=== PATIENT | female | born 1980 | race African-American/Black ===

== ENCOUNTER 2017-06-01 07:16 | Inpatient (IN) | payer OTHER ==
[2017-06-01] MEDS ORDERED: Misoprostol 25 MCG (1/4 of 100 MCG) Tab ONE (08:16)
[2017-06-01] MEDS ORDERED: Nalbuphine 20 MG/1 ML Amp IVPUSH PRN (08:28)
[2017-06-01] MEDS ORDERED: Ondansetron 4 MG/2 ML SDV IVPUSH PRN ×2 (08:28→17:10)
[2017-06-01] MEDS ORDERED: Sodium Chloride 0.9% 10 ML Syringe FLUSH PRN (08:28)
--- NOTE | 2017-06-01 08:29 | PCM.LDHP ---
<Daja Bartlett - Last Filed: 06/01/17 08:24> L&D History of Present Illness - General Date of Service: 06/01/17 Admit Problem/Dx: Admission Diagnosis/Problem Admission Diagnosis/Problem Source of Information: Patient History Limitations: Reports: No Limitations - History of Present Illness Introduction:: Patient is a 36 yo female that presents to labor and delivery for induction. She is a . She is in no acute distress. She is currently 40 1/7 weeks gestation. Cervix is 1-2 cm, 50% effaced, soft, posterior, vertex -1. The patient reports she had normal care up to today and reports having no complications with her prior pregnancies. The rest of her exam is unremarkable. Plan is to place cytotec 25 mcg at the cervix q3h now for a total of 3 doses. Oxytocin if indicated. Plan to rupture her membranes to induce labor. Continue monitoring GBS negative Pain Score: 0 Associated Symptoms: Reports: N - Related Data Allergies/Adverse Reactions: Allergies Allergy/AdvReac Type Severity Reaction Status Date / Time Penicillins Allergy Other Verified 11/27/14 09:21 Home Medications: Home Meds . 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 Para: 2 (2001) LMP (Approximate): - Past Surgical History HEENT Surgical History: Reports: Oral Surgery Other Cardiovascular Surgeries/Procedures: heart palpitation with Other Female Surgeries/Procedures: colposcopy Social & Family History - Family History Family Medical History: Noncontributory - Tobacco Use Smoking Status *Q: Never Smoker - Caffeine Use Caffeine Use: Reports: None - Alcohol Use Days Per Week of Alcohol Use: 0 - Recreational Drug Use Recreational Drug Use: No H&P Review of Systems - Review of Systems: Review Of Systems: See Below General: Reports: No Symptoms HEENT: Reports: No Symptoms Pulmonary: Reports: No Symptoms Cardiovascular: Reports: No Symptoms Gastrointestinal: Reports: No Symptoms Genitourinary: Reports: No Symptoms Musculoskeletal: Reports: No Symptoms Skin: Reports: No Symptoms Psychiatric: Reports: No Symptoms Neurological: Reports: No Symptoms Hematologic/Lymphatic: Reports: No Symptoms Immunologic: Reports: No Symptoms L&D Exam - Exam Exam: See Below - OB Specific Fundal Height In cm: 40 - Servin Score Servin Score Cervix Position: Posterior Servin Score Consistency: Soft Servin Score Effacement: 31-50% Servin Score Dilation: 1-2 cm Servin Score Infant's Station: -1 ,0 Servin Score Total: 6 - Exam General: Alert, Oriented HEENT: Mucosa Moist & [place] Neck: Supple, Trachea Midline Lungs: Clear to Auscultation, Normal Respiratory Effort Cardiovascular: Regular Rate, Regular Rhythm Rectal Exam: Deferred Genitourinary: Normal external exam, Normal bimanual exam Extremities: Normal Inspection, Non-Tender, No Pedal Edema Skin: Warm, Intact Psychiatric: Alert, Normal Affect, Normal Mood - Problem List (1) 40 weeks gestation of SNOMED Code(s): 24456845 ICD Code: Z3A.40 - 40 WEEKS GESTATION OF Status: Acute Current Visit: Yes Problem List Initiated/Reviewed/Updated: No Assessment/Plan Comment:: Patient is a 36 yo female that presents to labor and delivery for induction. She is a . She is in no acute distress. She is currently 40 1/7 weeks gestation. Cervix is 1-2 cm, 50% effaced, soft, posterior, vertex -1. The patient reports she had normal care up to today and reports having no complications with her prior pregnancies. The rest of her exam is unremarkable. Plan is to place cytotec 25 mcg at the cervix q3h now for a total of 3 doses. Oxytocin if indicated. Plan to rupture her membranes to induce labor. Continue monitoring GBS negative <Chris Blair - Last Filed: 06/01/17 08:49> L&D History of Present Illness - General Admit Problem/Dx: Patient Status Order with Admit Dx/Problem 06/01/17 08:28 Patient Status [ADT] Routine Admission Diagnosis/Problem Admission Diagnosis/Problem L&D Exam - Vital Signs Vital Signs: Last Vital Signs Temp 97.8 F 06/01/17 08:28 Pulse 80 06/01/17 08:28 Resp 18 06/01/17 08:28 BP 115/73 06/01/17 08:28 Pulse Ox 97 06/01/17 08:28 - Problem List (1) 40 weeks gestation of SNOMED Code(s): 46486206 ICD Code: Z3A.40 - 40 WEEKS GESTATION OF Status: Acute Current Visit: Yes Problem List Initiated/Reviewed/Updated: No Orders Last 24hrs: Active Orders 24 hr Category Date Time Status Patient Status [ADT] Routine ADT 06/01/17 08:28 Ordered Activity as Tolerated [RC] PFP Care 06/01/17 08:28 Ordered Communication Order [RC] ASDIRECTED Care 06/01/17 08:28 Ordered Heart Tones [RC] ASDIRECTED Care 06/01/17 08:29 Ordered Notify Provider [RC] PFP Care 06/01/17 08:28 Ordered Notify Provider [RC] PRN Care 06/01/17 08:28 Ordered Peripheral IV Care [RC] . DIRECTED Care 06/01/17 08:29 Ordered Vital Signs [RC] PER UNIT ROUTINE Care 06/01/17 08:28 Ordered Regular Diet [DIET] Diet 06/01/17 Breakfast Ordered CBC WITH AUTO DIFF [HEME] Stat Lab 06/01/17 08:28 Ordered TYPE AND SCREEN [BBK] Stat Lab 06/01/17 08:28 Ordered Lactated Ringers [Ringers, Lactated] 1,000 ml Med 06/01/17 08:30 Ordered IV ASDIRECTED Misoprostol [Cytotec] Med 06/01/17 11:16 Ordered 25 mcg VAG Q3H Nalbuphine [Nubain] Med 06/01/17 08:28 Ordered 10 mg IVPUSH Q2H PRN Ondansetron [Zofran] Med 06/01/17 08:28 Ordered 4 mg IVPUSH Q4H PRN Sodium Chloride 0.9% [Saline Flush] Med 06/01/17 08:28 Ordered 10 ml FLUSH ASDIRECTED PRN Electronic Heart Tones Ext w TOCO [WOMSER] Oth 06/01/17 08:28 Ordered Routine Electronic Heart Tones Internal [WOMSER] Per Unit Oth 06/01/17 08:28 Ordered Routine Peripheral IV Insertion Adult [OM.PC] Routine Oth 06/01/17 08:28 Ordered Resuscitation Status Routine Resus Stat 06/01/17 08:28 Ordered Medication Orders Lactated Ringer's (Ringers, Lactated) 1,000 mls @ 100 mls/hr IV ASDIRECTED MEET Misoprostol (Cytotec) 25 mcg VAG Q3H MEET Stop: 06/01/17 14:17 Nalbuphine HCl (Nubain) 10 mg IVPUSH Q2H PRN PRN Reason: Pain (moderate 4-6) Ondansetron HCl (Zofran) 4 mg IVPUSH Q4H PRN PRN Reason: Nausea/Vomiting Sodium Chloride (Saline Flush) 10 ml FLUSH ASDIRECTED PRN PRN Reason: Keep Vein Open Assessment/Plan Comment:: Patient seen, examined by me and discussed with student.
[2017-06-01] MEDS: Misoprostol 25 MCG (1/4 of 100 MCG) Tab VAG SCH ×2 (11:19→18:59)
--- NOTE | 2017-06-01 12:55 | PCM.SN ---
- Free Text/Narrative Note: ,soft,posterior, vtx-1 Clear fluid, Cat I FHR.
[2017-06-01] MEDS ORDERED: Oxytocin/Lactated Ringers 10 UNIT/1,000 ML BAG IV SCH (14:30)
[2017-06-01] MEDS ORDERED: Calcium Carbonate 500 MG Tab.Chew PO PRN (14:36)
[2017-06-01] MEDS: Lactated Ringers 1,000 ML IV SCH ×3 (14:49→18:20)
--- NOTE | 2017-06-01 16:41 | PCM.SN ---
- Free Text/Narrative Note: Cervix 4/100/ soft,mid position. Vertex 0 station. Cat I FHR
[2017-06-01] MEDS ORDERED: ePHEDrine 50 MG/ML SDV IVPUSH PRN (17:10)
[2017-06-01] MEDS ORDERED: fentaNYL 100 MCG/2 ML SDV EPIDUR PRN (17:10)
[2017-06-01] MEDS ORDERED: diphenhydrAMINE 50 MG/ML SDV IVPUSH PRN (17:10)
[2017-06-01] MEDS ORDERED: fentaNYL 100 MCG/2 ML SDV ONE (17:10)
[2017-06-01] MEDS ORDERED: Bupivacaine/fentaNYL/NS 100 ML Bag EPIDUR SCH (17:15)
--- NOTE | 2017-06-01 18:36 | PCM.PREANE ---
Preanesthetic Assessment - Procedure Proposed Procedure: MAXX - Anesthesia/Transfusion/Family Hx Anesthesia History: Prior Anesthesia Without Reaction Family History of Anesthesia Reaction: No Transfusion History: No Prior Transfusion(s) - Review of Systems General: No Symptoms Pulmonary: No Symptoms Cardiovascular: No Symptoms Gastrointestinal: Other (GERD with ) Neurological: No Symptoms Other: Reports: None - Physical Assessment NPO Status Date: 06/01/17 NPO Status Time: 17:00 O2 Sat by Pulse Oximetry: 97 Respiratory Rate: 18 Vital Signs: Last Vital Signs Temp 36.6 C 06/01/17 08:28 Pulse 80 06/01/17 08:28 Resp 18 06/01/17 08:28 BP 115/73 06/01/17 08:28 Pulse Ox 97 06/01/17 08:28 Height: 1.68 m Weight: 82.554 kg ASA Class: 2 Mental Status: Alert & Oriented x3 Airway Class: Mallampati = 2 Dentition: Reports: Normal Dentition Thyro-Mental Finger Breadths: 3 Mouth Opening Finger Breadths: 3 ROM/Head Extension: Full Lungs: Clear to Auscultation, Normal Respiratory Effort Cardiovascular: Regular Rate, Regular Rhythm - Lab Values: Laboratory Last Values WBC 9.28 K/mm3 (3.98-10.04) 06/01/17 08:45 RBC 3.91 M/mm3 (3.98-5.22) L 06/01/17 08:45 Hgb 12.4 gm/L (11.2-15.7) 06/01/17 08:45 Hct 35.7 % (34.1-44.9) 06/01/17 08:45 MCV 91.3 fl (79.4-94.8) 06/01/17 08:45 MCH 31.7 pg (25.6-32.2) 06/01/17 08:45 MCHC 34.7 g/dl (32.2-35.5) 06/01/17 08:45 RDW Std Deviation 45.4 fL (36.4-46.3) 06/01/17 08:45 Plt Count 172 K/mm3 (182-369) L 06/01/17 08:45 MPV 11.3 fl (9.4-12.3) 06/01/17 08:45 Neut % (Auto) 78.3 % (34.0-71.1) H 06/01/17 08:45 Lymph % (Auto) 13.0 % (19.3-51.7) L 06/01/17 08:45 [place] % (Auto) 7.1 % (4.7-12.5) 06/01/17 08:45 Eos % (Auto) 1.1 (0.7-5.8) 06/01/17 08:45 Baso % (Auto) 0.2 % (0.1-1.2) 06/01/17 08:45 Neut # (Auto) 7.26 K/mm3 (1.56-6.13) H 06/01/17 08:45 Lymph # (Auto) 1.21 K/mm3 (1.18-3.74) 06/01/17 08:45 [place] # (Auto) 0.66 K/mm3 (0.24-0.36) H 06/01/17 08:45 Eos # (Auto) 0.10 K/mm3 (0.04-0.36) 06/01/17 08:45 Baso # (Auto) 0.02 K/mm3 (0.01-0.08) 06/01/17 08:45 Blood Type B POSITIVE 06/01/17 08:45 Gel Antibody Screen Negative 06/01/17 08:45 - Allergies Allergies/Adverse Reactions: Allergies Allergy/AdvReac Type Severity Reaction Status Date / Time Penicillins Allergy Rash Verified 06/01/17 09:09 - Blood Blood Available: No Product(s) Available: None - Anesthesia Plan Pre-Op Medication Ordered: None - Acknowledgements Anesthesia Type Planned: Epidural Pt an Appropriate Candidate for the Planned Anesthesia: Yes Alternatives and Risks of Anesthesia Discussed w Pt/Guardian: Yes Pt/Guardian Understands and Agrees with Anesthesia Plan: Yes PreAnesthesia Questionnaire - Past Health History Medical/Surgical History: Denies 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: - Past Surgical History HEENT Surgical History: Reports: Oral Surgery Other Cardiovascular Surgeries/Procedures: heart palpitation with Other Female Surgeries/Procedures: colposcopy - SUBSTANCE USE Smoking Status *Q: Never Smoker Days Per Week of Alcohol Use: 0 Recreational Drug Use History: No - HOME MEDS Home Medications: Home Meds Vit W-Ca,Fe,FA(<1 mg) [ Vitamins] 1 tab PO DAILY 06/01/17 [ History] - CURRENT (IN HOUSE) MEDS Current Meds: Current Medications Calcium Carbonate/Glycine (Tums) 500 mg PO Q2H PRN PRN Reason: Indigestion Diphenhydramine HCl (Benadryl) 25 mg IVPUSH Q6H PRN PRN Reason: Pruritis Ephedrine Sulfate (Ephedrine Sulfate) 5 mg IVPUSH ASDIRECTED PRN PRN Reason: Hypotension Fentanyl (Sublimaze) 100 mcg EPIDUR Q3H PRN PRN Reason: Pain Last Admin: 06/01/17 17:38 Dose: 100 mcg Fentanyl/Bupivacaine HCl (Fentanyl/Bupivacaine/Ns 2 Mcg-0.125% 100 Ml) 100 ml EPIDUR ASDIRECTED MEET Last Admin: 06/01/17 17:38 Dose: 100 ml Lactated Ringer's (Ringers, Lactated) 1,000 mls @ 100 mls/hr IV ASDIRECTED MEET Last Admin: 06/01/17 18:20 Dose: 100 mls/hr Oxytocin 20 unit/ Lactated (Ringer's) 1,002 mls @ 1,503 mls/hr IV ASDIRECTED MEET; 500 MUNITS/MIN PRN Reason: Protocol Oxytocin/Lactated Ringer's (Pitocin In Lr 10 Units/1,000 Ml) 10 unit in 1,000 mls @ 12 mls/hr IV TITRATE MEET; 2 MUNITS/MIN PRN Reason: Protocol Last Titration: 06/01/17 17:50 Dose: 1 munits/min, 6 mls/hr Nalbuphine HCl (Nubain) 10 mg IVPUSH Q2H PRN PRN Reason: Pain (moderate 4-6) Ondansetron HCl (Zofran) 4 mg IVPUSH Q4H PRN PRN Reason: Nausea/Vomiting Ondansetron HCl (Zofran) 4 mg IVPUSH ONETIME PRN PRN Reason: Nausea/Vomiting Sodium Chloride (Saline Flush) 10 ml FLUSH ASDIRECTED PRN PRN Reason: Keep Vein Open Discontinued Medications Fentanyl (Sublimaze) Confirm Administered Dose 100 mcg .ROUTE .STK-MED ONE Stop: 06/01/17 17:11 Misoprostol (Cytotec) Confirm Administered Dose 25 mcg .ROUTE .STK-MED ONE Stop: 06/01/17 08:17 Last Admin: 06/01/17 08:20 Dose: 25 mcg Misoprostol (Cytotec) 25 mcg VAG Q3H MEET Stop: 06/01/17 14:17 Last Admin: 06/01/17 11:19 Dose: 25 mcg
--- NOTE | 2017-06-01 20:41 | PCM.DEL ---
L & D Note - General Info Date of Service: 06/01/17 Mother's Due Date: 05/31/17 - Delivery Note Labor: Augmented by ARM, Induced by Oxytocin Cervical Ripening Method: Misoprostil (25 mcg x2) Delivery Outcome: Livebirth (female liveborn 06/01/2017 2011 hrs. LJ, 3200 g/7# 0.9 oz. APGARs 8/9 No nuchalcord) Delivery Method: Spontaneous Vaginal Delivery-Single Infant Delivery Mode: Spontaneous Presentation: Right Occiput Anterior (LJ) Nuchal Cord: None Prep: Povidone-Iodine (Betadine Anesthesia Type: Epidural Episiotomy Type: None Laceration: 1st Degree (Right labia minor or a medial level of the urethra not bleeding not sutured) Placenta: Intact, Spontaneous (Delivered spontaneous 06/01/17 at 202 hrs. intact succenturiate lobe noted) Cord: 3 Vessels Estimated Blood Loss: 250 Resuscitation Needed: No : Suctioned, Bulb Syringe, Stimulated, Warmed, [place] Used, Warmer Used Provider: Chris Blair Score 1 min: 8 Score 5 min: 9 - Patient Data Vitals - Most Recent: Last Vital Signs Temp 97.8 F 06/01/17 08:28 Pulse 80 06/01/17 08:28 Resp 18 06/01/17 18:36 BP 115/73 06/01/17 08:28 Pulse Ox 97 06/01/17 18:36 Weight - Most Recent: 182 lb I&O - Last 24 Hours: Intake & Output 06/01/17 06/01/17 06/01/17 06:59 14:59 22:59 Intake Total 120 120 Balance 120 120 Lab Results Last 24 Hours: Laboratory Results - last 24 hr 06/01/17 06/01/17 Range/Units 08:45 08:45 WBC 9.28 (3.98-10.04) K/mm3 RBC 3.91 L (3.98-5.22) M/mm3 Hgb 12.4 (11.2-15.7) gm/L Hct 35.7 (34.1-44.9) % MCV 91.3 (79.4-94.8) fl MCH 31.7 (25.6-32.2) pg MCHC 34.7 (32.2-35.5) g/dl RDW Std Deviation 45.4 (36.4-46.3) fL Plt Count 172 L (182-369) K/mm3 MPV 11.3 (9.4-12.3) fl Neut % (Auto) 78.3 H (34.0-71.1) % Lymph % (Auto) 13.0 L (19.3-51.7) % [place] % (Auto) 7.1 (4.7-12.5) % Eos % (Auto) 1.1 (0.7-5.8) Baso % (Auto) 0.2 (0.1-1.2) % Neut # (Auto) 7.26 H (1.56-6.13) K/mm3 Lymph # (Auto) 1.21 (1.18-3.74) K/mm3 [place] # (Auto) 0.66 H (0.24-0.36) K/mm3 Eos # (Auto) 0.10 (0.04-0.36) K/mm3 Baso # (Auto) 0.02 (0.01-0.08) K/mm3 Blood Type B POSITIVE Gel Antibody Screen Negative Med Orders - Current: Current Medications Calcium Carbonate/Glycine (Tums) 500 mg PO Q2H PRN PRN Reason: Indigestion Diphenhydramine HCl (Benadryl) 25 mg IVPUSH Q6H PRN PRN Reason: Pruritis Ephedrine Sulfate (Ephedrine Sulfate) 5 mg IVPUSH ASDIRECTED PRN PRN Reason: Hypotension Fentanyl (Sublimaze) 100 mcg EPIDUR Q3H PRN PRN Reason: Pain Last Admin: 06/01/17 17:38 Dose: 100 mcg Fentanyl/Bupivacaine HCl (Fentanyl/Bupivacaine/Ns 2 Mcg-0.125% 100 Ml) 100 ml EPIDUR ASDIRECTED MEET Last Admin: 06/01/17 17:38 Dose: 100 ml Lactated Ringer's (Ringers, Lactated) 1,000 mls @ 100 mls/hr IV ASDIRECTED MEET Last Admin: 06/01/17 18:20 Dose: 100 mls/hr Oxytocin 20 unit/ Lactated (Ringer's) 1,002 mls @ 1,503 mls/hr IV ASDIRECTED MEET; 500 MUNITS/MIN PRN Reason: Protocol Oxytocin/Lactated Ringer's (Pitocin In Lr 10 Units/1,000 Ml) 10 unit in 1,000 mls @ 12 mls/hr IV TITRATE MEET; 2 MUNITS/MIN PRN Reason: Protocol Last Titration: 06/01/17 17:50 Dose: 1 munits/min, 6 mls/hr Nalbuphine HCl (Nubain) 10 mg IVPUSH Q2H PRN PRN Reason: Pain (moderate 4-6) Ondansetron HCl (Zofran) 4 mg IVPUSH Q4H PRN PRN Reason: Nausea/Vomiting Ondansetron HCl (Zofran) 4 mg IVPUSH ONETIME PRN PRN Reason: Nausea/Vomiting Sodium Chloride (Saline Flush) 10 ml FLUSH ASDIRECTED PRN PRN Reason: Keep Vein Open Discontinued Medications Fentanyl (Sublimaze) Confirm Administered Dose 100 mcg .ROUTE .STK-MED ONE Stop: 06/01/17 17:11 Last Admin: 06/01/17 19:00 Dose: Not Given Misoprostol (Cytotec) Confirm Administered Dose 25 mcg .ROUTE .STK-MED ONE Stop: 06/01/17 08:17 Last Admin: 06/01/17 08:20 Dose: 25 mcg Misoprostol (Cytotec) 25 mcg VAG Q3H MEET Stop: 06/01/17 14:17 Last Admin: 06/01/17 18:59 Dose: Not Given - Problem List & Annotations (1) 40 weeks gestation of SNOMED Code(s): 61556809 Code(s): Z3A.40 - 40 WEEKS GESTATION OF Status: Acute Current Visit: Yes (2) First degree perineal laceration during delivery SNOMED Code(s): 298408920 Code(s): O70.0 - FIRST DEGREE PERINEAL LACERATION DURING DELIVERY Status: Acute Current Visit: Yes (3) Placenta succenturiata in third trimester SNOMED Code(s): 76496124 Code(s): O43.193 - OTHER MALFORMATION OF PLACENTA, THIRD TRIMESTER Status: Acute Current Visit: Yes - Problem List Review Problem List Initiated/Reviewed/Updated: No - My Orders Last 24 Hours: My Active Orders 06/01/17 08:28 Patient Status [ADT] Routine Activity as Tolerated [RC] PFP Communication Order [RC] ASDIRECTED Notify Provider [RC] PFP Notify Provider [RC] PRN Vital Signs [RC] PER UNIT ROUTINE Nalbuphine [Nubain] 10 mg IVPUSH Q2H PRN Ondansetron [Zofran] 4 mg IVPUSH Q4H PRN Sodium Chloride 0.9% [Saline Flush] 10 ml FLUSH ASDIRECTED PRN Electronic Heart Tones Ext w TOCO [WOMSER] Routine Electronic Heart Tones Internal [WOMSER] Per Unit Routine Peripheral IV Insertion Adult [OM.PC] Routine Resuscitation Status Routine 06/01/17 08:29 Heart Tones [RC] ASDIRECTED Peripheral IV Care [RC] . DIRECTED 06/01/17 08:30 Lactated Ringers [Ringers, Lactated] 1,000 ml IV ASDIRECTED 06/01/17 14:15 Oxytocin [Pitocin] 20 unit Lactated Ringers [Ringers, Lactated] 1,000 ml IV ASDIRECTED 06/01/17 14:30 Oxytocin/Lactated Ringers [Pitocin in LR 10 Units/1,000 ML] 10 unit in 1,000 ml IV TITRATE 06/01/17 14:36 Calcium Carbonate [Tums] 500 mg PO Q2H PRN 06/01/17 Breakfast Regular Diet [DIET] - Plan Plan:: Patient seen, examined by me and discussed with student.
[2017-06-01] MEDS ORDERED: Lanolin 100% Cream 7 GM Tube TOP PRN (20:45)
[2017-06-01] MEDS ORDERED: Docusate Sodium 100 MG Cap PO PRN (20:45)
[2017-06-01] MEDS ORDERED: Benzocaine/Menthol 20%-0.5% Spray 56 GM Canister TOP PRN (20:45)
[2017-06-01] MEDS ORDERED: Acetaminophen 325 MG Tab PO PRN (20:45)
[2017-06-01] MEDS ORDERED: Witch Hazel Medicated Pads 100/Jar TOP PRN (20:45)
[2017-06-01] MEDS: Ibuprofen 600 MG Tab PO PRN (21:57)
[2017-06-01] MEDS ORDERED: diphenhydrAMINE 50 MG/ML SDV IVPUSH STA (22:08)
[2017-06-01] MEDS ORDERED: Bupivacaine 0.25% 10 ML SDV ONE (22:22)
[2017-06-02] MEDS: Ibuprofen 600 MG Tab PO PRN ×2 (08:16→12:05)
[2017-06-02] MEDS ORDERED: Prenatal Multivitamin with Calcium/Folic Acid/Iron Tab PO SCH (09:00)
--- NOTE | 2017-06-02 10:09 | PCM.DCSUM1 ---
Discharge Summary - Hospital Course Free Text/Narrative:: [facility] LIVE L/D Delivery Note Patient Name: PARENT ANDREAS VANESSA Date of : 82 Patient Status: Inpatient Attending Provider: Chris Blair Date: 06/01/17 20:37 Initialization Date: 06/01/17 20:37 L & D Note - General Info Date of Service: 06/01/17 Mother's Due Date: 05/31/17 - Delivery Note Labor: Augmented by ARM, Induced by Oxytocin Cervical Ripening Method: Misoprostil (25 mcg x2) Delivery Outcome: Livebirth (female liveborn 06/01/2017 2011 hrs. LJ, 3200 g/7# 0.9 oz. APGARs 8/9 No nuchalcord) Infant Delivery Method: Spontaneous Vaginal Delivery-Single Delivery Mode: Spontaneous Presentation: Right Occiput Anterior (LJ) Nuchal Cord: None Prep: Povidone-Iodine (Betadine Anesthesia Type: Epidural Episiotomy Type: None Laceration: 1st Degree (Right labia minor or a medial level of the urethra not bleeding not sutured) Placenta: Intact, Spontaneous (Delivered spontaneous 06/01/17 at 202 hrs. intact succenturiate lobe noted) Cord: 3 Vessels Estimated Blood Loss: 250 Resuscitation Needed: No [place]: Suctioned, Bulb Syringe, Stimulated, Warmed, [place] Used, Warmer Used Provider: Chris Blair Score 1 min: 8 Score 5 min: 9 - Patient Data Vitals - Most Recent: Last Vital Signs Temp 97.8 F 06/01/17 08:28 Pulse 80 06/01/17 08:28 Resp 18 06/01/17 18:36 BP 115/73 06/01/17 08:28 Pulse Ox 97 06/01/17 18:36 Weight - Most Recent: 182 lb I&O - Last 24 Hours: Intake & Output 06/01/17 06/01/17 06/01/17 06:59 14:59 22:59 Intake Total 120 120 Balance 120 120 Lab Results Last 24 Hours: Laboratory Results - last 24 hr 06/01/17 06/01/17 Range/Units 08:45 08:45 WBC 9.28 (3.98-10.04) K/mm3 RBC 3.91 L (3.98-5.22) M/mm3 Hgb 12.4 (11.2-15.7) gm/L Hct 35.7 (34.1-44.9) % MCV 91.3 (79.4-94.8) fl MCH 31.7 (25.6-32.2) pg MCHC 34.7 (32.2-35.5) g/dl RDW Std Deviation 45.4 (36.4-46.3) fL Plt Count 172 L (182-369) K/mm3 MPV 11.3 (9.4-12.3) fl Neut % (Auto) 78.3 H (34.0-71.1) % Lymph % (Auto) 13.0 L (19.3-51.7) % [place] % (Auto) 7.1 (4.7-12.5) % Eos % (Auto) 1.1 (0.7-5.8) Baso % (Auto) 0.2 (0.1-1.2) % Neut # (Auto) 7.26 H (1.56-6.13) K/mm3 Lymph # (Auto) 1.21 (1.18-3.74) K/mm3 [place] # (Auto) 0.66 H (0.24-0.36) K/mm3 Eos # (Auto) 0.10 (0.04-0.36) K/mm3 Baso # (Auto) 0.02 (0.01-0.08) K/mm3 Blood Type B POSITIVE Gel Antibody Screen Negative Med Orders - Current: Current Medications Calcium Carbonate/Glycine (Tums) 500 mg PO Q2H PRN PRN Reason: Indigestion Diphenhydramine HCl (Benadryl) 25 mg IVPUSH Q6H PRN PRN Reason: Pruritis Ephedrine Sulfate (Ephedrine Sulfate) 5 mg IVPUSH ASDIRECTED PRN PRN Reason: Hypotension Fentanyl (Sublimaze) 100 mcg EPIDUR Q3H PRN PRN Reason: Pain Last Admin: 06/01/17 17:38 Dose: 100 mcg Fentanyl/Bupivacaine HCl (Fentanyl/Bupivacaine/Ns 2 Mcg-0.125% 100 Ml) 100 ml EPIDUR ASDIRECTED MEET Last Admin: 10/12/17 17:38 Dose: 100 ml Lactated Ringer's (Ringers, Lactated) 1,000 mls @ 100 mls/hr IV ASDIRECTED MEET Last Admin: 06/01/17 18:20 Dose: 100 mls/hr Oxytocin 20 unit/ Lactated (Ringer's) 1,002 mls @ 1,503 mls/hr IV ASDIRECTED MEET; 500 MUNITS/MIN PRN Reason: Protocol Oxytocin/Lactated Ringer's (Pitocin In Lr 10 Units/1,000 Ml) 10 unit in 1,000 mls @ 12 mls/hr IV TITRATE MEET; 2 MUNITS/MIN PRN Reason: Protocol Last Titration: 06/01/17 17:50 Dose: 1 munits/min, 6 mls/hr Nalbuphine HCl (Nubain) 10 mg IVPUSH Q2H PRN PRN Reason: Pain (moderate 4-6) Ondansetron HCl (Zofran) 4 mg IVPUSH Q4H PRN PRN Reason: Nausea/Vomiting Ondansetron HCl (Zofran) 4 mg IVPUSH ONETIME PRN PRN Reason: Nausea/Vomiting Sodium Chloride (Saline Flush) 10 ml FLUSH ASDIRECTED PRN PRN Reason: Keep Vein Open Discontinued Medications Fentanyl (Sublimaze) Confirm Administered Dose 100 mcg .ROUTE .STK-MED ONE Stop: 06/01/17 17:11 Last Admin: 06/01/17 19:00 Dose: Not Given Misoprostol (Cytotec) Confirm Administered Dose 25 mcg .ROUTE .STK-MED ONE Stop: 06/01/17 08:17 Last Admin: 06/01/17 08:20 Dose: 25 mcg Misoprostol (Cytotec) 25 mcg VAG Q3H [facility] Stop: 06/01/17 14:17 Last Admin: 06/01/17 18:59 Dose: Not Given - Problem List & Annotations (1) 40 weeks gestation of SNOMED Code(s): 43946736 Code(s): Z3A.40 - 40 WEEKS GESTATION OF Status: Acute Current Visit: Yes (2) First degree perineal laceration during delivery SNOMED Code(s): 726908372 Code(s): O70.0 - FIRST DEGREE PERINEAL LACERATION DURING DELIVERY Status: Acute Current Visit: Yes (3) Placenta succenturiata in third trimester SNOMED Code(s): 36607102 Code(s): O43.193 - OTHER MALFORMATION OF PLACENTA, THIRD TRIMESTER Status: Acute Current Visit: Yes - Problem List Review Problem List Initiated/Reviewed/Updated: No - My Orders Last 24 Hours: My Active Orders 06/01/17 08:28 Patient Status [ADT] Routine Activity as Tolerated [RC] PFP Communication Order [RC] ASDIRECTED Notify Provider [RC] PFP Notify Provider [RC] PRN Vital Signs [RC] PER UNIT ROUTINE Nalbuphine [Nubain] 10 mg IVPUSH Q2H PRN Ondansetron [Zofran] 4 mg IVPUSH Q4H PRN Sodium Chloride 0.9% [Saline Flush] 10 ml FLUSH ASDIRECTED PRN Electronic Heart Tones Ext w TOCO [WOMSER] Routine Electronic Heart Tones Internal [WOMSER] Per Unit Routine Peripheral IV Insertion Adult [OM.PC] Routine Resuscitation Status Routine 06/01/17 08:29 Heart Tones [RC] ASDIRECTED Peripheral IV Care [RC] . DIRECTED 06/01/17 08:30 Lactated Ringers [Ringers, Lactated] 1,000 ml IV ASDIRECTED 06/01/17 14:15 Oxytocin [Pitocin] 20 unit Lactated Ringers [Ringers, Lactated] 1,000 ml IV ASDIRECTED 06/01/17 14:30 Oxytocin/Lactated Ringers [Pitocin in LR 10 Units/1,000 ML] 10 unit in 1,000 ml IV TITRATE 06/01/17 14:36 Calcium Carbonate [Tums] 500 mg PO Q2H PRN 06/01/17 Breakfast Regular Diet [DIET] - Plan Plan:: Patient seen, examined by me and discussed with student. HPI Initial Comments: [facility] LIVE L/D Delivery Note Patient Name: PARENT ANDREAS VANESSA Date of : 82 Patient Status: Inpatient Attending Provider: Chris Blair Date: 06/01/17 20:37 Initialization Date: 06/01/17 20:37 L & D Note - General Info Date of Service: 06/01/17 Mother's Due Date: 05/31/17 - Delivery Note Labor: Augmented by ARM, Induced by Oxytocin Cervical Ripening Method: Misoprostil (25 mcg x2) Delivery Outcome: Livebirth (female liveborn 06/01/2017 2011 hrs. LJ, 3200 g/7# 0.9 oz. APGARs 8/9 No nuchalcord) Infant Delivery Method: Spontaneous Vaginal Delivery-Single Infant Delivery Mode: Spontaneous Presentation: Right Occiput Anterior (LJ) Nuchal Cord: None Prep: Povidone-Iodine (Betadine Anesthesia Type: Epidural Episiotomy Type: None Laceration: 1st Degree (Right labia minor or a medial level of the urethra not bleeding not sutured) Placenta: Intact, Spontaneous (Delivered spontaneous 06/01/17 at 2024 hrs. intact succenturiate lobe noted) Cord: 3 Vessels Estimated Blood Loss: 250 Resuscitation Needed: No [place]: Suctioned, Bulb Syringe, Stimulated, Warmed, [place] Used, Warmer Used Provider: Chris Blair Score 1 min: 8 Score 5 min: 9 - Patient Data Vitals - Most Recent: Last Vital Signs Temp 97.8 F 06/01/17 08:28 Pulse 80 06/01/17 08:28 Resp 18 06/01/17 18:36 BP 115/73 06/01/17 08:28 Pulse Ox 97 06/01/17 18:36 Weight - Most Recent: 182 lb I&O - Last 24 Hours: Intake & Output 06/01/17 06/01/17 06/01/17 06:59 14:59 22:59 Intake Total 120 120 Balance 120 120 Lab Results Last 24 Hours: Laboratory Results - last 24 hr 06/01/17 06/01/17 Range/Units 08:45 08:45 WBC 9.28 (3.98-10.04) K/mm3 RBC 3.91 L (3.98-5.22) M/mm3 Hgb 12.4 (11.2-15.7) gm/L Hct 35.7 (34.1-44.9) % MCV 91.3 (79.4-94.8) fl MCH 31.7 (25.6-32.2) pg MCHC 34.7 (32.2-35.5) g/dl RDW Std Deviation 45.4 (36.4-46.3) fL Plt Count 172 L (182-369) K/mm3 MPV 11.3 (9.4-12.3) fl Neut % (Auto) 78.3 H (34.0-71.1) % Lymph % (Auto) 13.0 L (19.3-51.7) % [place] % (Auto) 7.1 (4.7-12.5) % Eos % (Auto) 1.1 (0.7-5.8) Baso % (Auto) 0.2 (0.1-1.2) % Neut # (Auto) 7.26 H (1.56-6.13) K/mm3 Lymph # (Auto) 1.21 (1.18-3.74) K/mm3 [place] # (Auto) 0.66 H (0.24-0.36) K/mm3 Eos # (Auto) 0.10 (0.04-0.36) K/mm3 Baso # (Auto) 0.02 (0.01-0.08) K/mm3 Blood Type B POSITIVE Gel Antibody Screen Negative Med Orders - Current: Current Medications Calcium Carbonate/Glycine (Tums) 500 mg PO Q2H PRN PRN Reason: Indigestion Diphenhydramine HCl (Benadryl) 25 mg IVPUSH Q6H PRN PRN Reason: Pruritis Ephedrine Sulfate (Ephedrine Sulfate) 5 mg IVPUSH ASDIRECTED PRN PRN Reason: Hypotension Fentanyl (Sublimaze) 100 mcg EPIDUR Q3H PRN PRN Reason: Pain Last Admin: 06/01/17 17:38 Dose: 100 mcg Fentanyl/Bupivacaine HCl (Fentanyl/Bupivacaine/Ns 2 Mcg-0.125% 100 Ml) 100 ml EPIDUR ASDIRECTED MEET Last Admin: 06/01/17 17:38 Dose: 100 ml Lactated Ringer's (Ringers, Lactated) 1,000 mls @ 100 mls/hr IV ASDIRECTED MEET Last Admin: 06/01/17 18:20 Dose: 100 mls/hr Oxytocin 20 unit/ Lactated (Ringer's) 1,002 mls @ 1,503 mls/hr IV ASDIRECTED MEET; 500 MUNITS/MIN PRN Reason: Protocol Oxytocin/Lactated Ringer's (Pitocin In Lr 10 Units/1,000 Ml) 10 unit in 1,000 mls @ 12 mls/hr IV TITRATE MEET; 2 MUNITS/MIN PRN Reason: Protocol Last Titration: 06/01/17 17:50 Dose: 1 munits/min, 6 mls/hr Nalbuphine HCl (Nubain) 10 mg IVPUSH Q2H PRN PRN Reason: Pain (moderate 4-6) Ondansetron HCl (Zofran) 4 mg IVPUSH Q4H PRN PRN Reason: Nausea/Vomiting Ondansetron HCl (Zofran) 4 mg IVPUSH ONETIME PRN PRN Reason: Nausea/Vomiting Sodium Chloride (Saline Flush) 10 ml FLUSH ASDIRECTED PRN PRN Reason: Keep Vein Open Discontinued Medications Fentanyl (Sublimaze) Confirm Administered Dose 100 mcg .ROUTE .STK-MED ONE Stop: 06/01/17 17:11 Last Admin: 06/01/17 19:00 Dose: Not Given Misoprostol (Cytotec) Confirm Administered Dose 25 mcg .ROUTE .STK-MED ONE Stop: 06/01/17 08:17 Last Admin: 06/01/17 08:20 Dose: 25 mcg Misoprostol (Cytotec) 25 mcg VAG Q3H MEET Stop: 06/01/17 14:17 Last Admin: 06/01/17 18:59 Dose: Not Given - Problem List & Annotations (1) 40 weeks gestation of SNOMED Code(s): 00131919 Code(s): Z3A.40 - 40 WEEKS GESTATION OF Status: Acute Current Visit: Yes (2) First degree perineal laceration during delivery SNOMED Code(s): 614514204 Code(s): O70.0 - FIRST DEGREE PERINEAL LACERATION DURING DELIVERY Status: Acute Current Visit: Yes (3) Placenta succenturiata in third trimester SNOMED Code(s): 59740763 Code(s): O43.193 - OTHER MALFORMATION OF PLACENTA, THIRD TRIMESTER Status: Acute Current Visit: Yes - Problem List Review Problem List Initiated/Reviewed/Updated: No - My Orders Last 24 Hours: My Active Orders 06/01/17 08:28 Patient Status [ADT] Routine Activity as Tolerated [RC] PFP Communication Order [RC] ASDIRECTED Notify Provider [RC] PFP Notify Provider [RC] PRN Vital Signs [RC] PER UNIT ROUTINE Nalbuphine [Nubain] 10 mg IVPUSH Q2H PRN Ondansetron [Zofran] 4 mg IVPUSH Q4H PRN Sodium Chloride 0.9% [Saline Flush] 10 ml FLUSH ASDIRECTED PRN Electronic Heart Tones Ext w TOCO [WOMSER] Routine Electronic Heart Tones Internal [WOMSER] Per Unit Routine Peripheral IV Insertion Adult [OM.PC] Routine Resuscitation Status Routine 06/01/17 08:29 Heart Tones [RC] ASDIRECTED Peripheral IV Care [RC] . DIRECTED 06/01/17 08:30 Lactated Ringers [Ringers, Lactated] 1,000 ml IV ASDIRECTED 06/01/17 14:15 Oxytocin [Pitocin] 20 unit Lactated Ringers [Ringers, Lactated] 1,000 ml IV ASDIRECTED 06/01/17 14:30 Oxytocin/Lactated Ringers [Pitocin in LR 10 Units/1,000 ML] 10 unit in 1,000 ml IV TITRATE 06/01/17 14:36 Calcium Carbonate [Tums] 500 mg PO Q2H PRN 06/01/17 Breakfast Regular Diet [DIET] - Plan Plan:: Patient seen, examined by me and discussed with student. Brief History: [facility] LIVE . L/D Delivery Note. Patient Name: PARENT ANDREAS VANESSA Record Number: [id number]. Date of : [birth year]Patient Status: Inpatient. Attending Provider: Chris Blair Number: [id number]. Date: 06/01/17 20:37Initialization Date: 06/01/17 20:37. L & D Note. - General Info. Date of Service: 06/01/17. Mother's Due Date: 05/31/17. - Delivery Note. Labor: Augmented by ARM, Induced by Oxytocin. Cervical Ripening Method: Misoprostil (25 mcg x2). Delivery Outcome: Livebirth (female liveborn 06/01/2017 2011 hrs. LJ, 3200 g/7# 0.9 oz. APGARs 8/ 9 No nuchalcord). Delivery Method: Spontaneous Vaginal Delivery-Single. Delivery Mode: Spontaneous. Presentation: Right Occiput Anterior (LJ). Nuchal Cord: None. Prep: Povidone-Iodine (Betadine. Anesthesia Type: Epidural. Episiotomy Type: None. Laceration: 1st Degree ( Right labia minor or a medial level of the urethra not bleeding not sutured). Placenta: Intact, Spontaneous (Delivered spontaneous 06/01/17 at 2025 hrs. intact succenturiate lobe noted). Cord: 3 Vessels. Estimated Blood Loss: 250. Resuscitation Needed: No. : Suctioned, Bulb Syringe, Stimulated, Warmed, [place] Used, Warmer Used. Provider: Chris Blair. Score 1 min: 8. Score 5 min: 9. - Patient Data. Vitals - Most Recent: Last Vital Signs. Temp 97.8 F 06/01/17 08:28. Pulse 80 06/01/17 08: 28. Resp 18 06/01/17 18:36. BP 115/73 06/01/17 08:28. Pulse Ox 97 18:36. Weight - Most Recent: 182 lb. I&O - Last 24 Hours: Intake & Output. 06/01/171007/1710. 06:5914:5922:59. Intake [id number]. [id number]. Lab Results Last 24 Hours: Laboratory Results - last 24 hr. Range/Units. 08:4508:45. WBC 9.28 (3.98-10.04) K/mm3. RBC 3.91 L (3.98-5.22) M/mm3. Hgb 12.4 (11.2-15.7) gm/L. Hct 35.7 (34.1-44.9) % . MCV 91.3 (79.4-94.8) fl. MCH 31.7 (25.6-32.2) pg. MCHC 34.7 (32.2-35.5) g/dl. RDW Std Deviation 45.4 (36.4-46.3) fL. Plt Count 172 L (182-369) K/ mm3. MPV 11.3 (9.4-12.3) fl. Neut % (Auto) 78.3 H (34.0-71.1) %. Lymph % ( Auto) 13.0 L (19.3-51.7) %. [place] % (Auto) 7.1 (4.7-12.5) %. Eos % (Auto) 1.1 (0.7-5.8). Baso % (Auto) 0.2 (0.1-1.2) %. Neut # (Auto) 7.26 H (1.56-6.13 ) K/mm3. Lymph # (Auto) 1.21 (1.18-3.74) K/mm3. [place] # (Auto) 0.66 H (0.24- 0.36) K/mm3. Eos # (Auto) 0.10 (0.04-0.36) K/mm3. Baso # (Auto) 0.02 (0.01- 0.08) K/mm3. Blood Type B POSITIVE. Gel Antibody Screen Negative. Med Orders - Current: Current Medications. Calcium Carbonate/Glycine (Tums) 500 mg PO Q2H PRN. PRN Reason: Indigestion. Diphenhydramine HCl (Benadryl) 25 mg IVPUSH Q6H PRN. PRN Reason: Pruritis. Ephedrine Sulfate (Ephedrine Sulfate) 5 mg IVPUSH ASDIRECTED PRN. PRN Reason: Hypotension. Fentanyl (Sublimaze) 100 mcg EPIDUR Q3H PRN. PRN Reason: Pain. Last Admin: 06/01/17 17:38 Dose: 100 mcg. Fentanyl/Bupivacaine HCl (Fentanyl/Bupivacaine/Ns 2 Mcg-0.125% 100 Ml ) 100 ml EPIDUR ASDIRECTED MEET. Last Admin: 06/01/17 17:38 Dose: 100 ml. Lactated Ringer's (Ringers, Lactated) 1,000 mls @ 100 mls/hr IV ASDIRECTED MEET. Last Admin: 06/01/17 18:20 Dose: 100 mls/hr. Oxytocin 20 unit/ Lactated (Ringer's) 1,002 mls @ 1,503 mls/hr IV ASDIRECTED MEET; 500 MUNITS/MIN. PRN Reason: Protocol. Oxytocin/Lactated Ringer's (Pitocin In Lr 10 Units/1,000 Ml) 10 unit in 1,000 mls @ 12 mls/hr IV TITRATE MEET; 2 MUNITS/MIN. PRN Reason: Protocol. Last Titration: 06/01/17 17:50 Dose: 1 munits/min, 6 mls/hr. Nalbuphine HCl (Nubain) 10 mg IVPUSH Q2H PRN. PRN Reason: Pain (moderate 4-6) . Ondansetron HCl (Zofran) 4 mg IVPUSH Q4H PRN. PRN Reason: Nausea/Vomiting. Ondansetron HCl (Zofran) 4 mg IVPUSH ONETIME PRN. PRN Reason: Nausea/ Vomiting. Sodium Chloride (Saline Flush) 10 ml FLUSH ASDIRECTED PRN. PRN Reason: Keep Vein Open. Discontinued Medications. Fentanyl (Sublimaze) Confirm Administered Dose 100 mcg .ROUTE .STK-MED ONE. Stop: 06/01/17 17:11. Last Admin: 06/01/17 19:00 Dose: Not Given. Misoprostol (Cytotec) Confirm Administered Dose 25 mcg .ROUTE .STK-MED ONE. Stop: 06/01/17 08:17. Last Admin : 06/01/17 08:20 Dose: 25 mcg. Misoprostol (Cytotec) 25 mcg VAG Q3H MEET. Stop: 06/01/17 14:17. Last Admin: 06/01/17 18:59 Dose: Not Given. - Problem List & Annotations. (1) 40 weeks gestation of . SNOMED Code(s): 40348737. Code(s): Z3A.40 - 40 WEEKS GESTATION OF Status: Acute Current Visit: Yes. (2) First degree perineal laceration during delivery. SNOMED Code(s): 350259007. Code(s): O70.0 - FIRST DEGREE PERINEAL LACERATION DURING DELIVERY Status: Acute Current Visit: Yes. (3) Placenta succenturiata in third trimester. SNOMED Code(s): 75029577. Code(s): O43.193 - OTHER MALFORMATION OF PLACENTA, THIRD TRIMESTER Status: Acute Current Visit: Yes. - Problem List Review. Problem List Initiated/Reviewed/Updated: No. - My Orders. Last 24 Hours: My Active Orders. 06/01/17 08:28. Patient Status [ADT] Routine. Activity as Tolerated [RC] PFP. Communication Order [RC ] ASDIRECTED. Notify Provider [RC] PFP. Notify Provider [RC] PRN. Vital Signs [RC] PER UNIT ROUTINE. Nalbuphine [Nubain] 10 mg IVPUSH Q2H PRN. Ondansetron [Zofran] 4 mg IVPUSH Q4H PRN. Sodium Chloride 0.9% [Saline Flush ] 10 ml FLUSH ASDIRECTED PRN. Electronic Heart Tones Ext w TOCO [WOMSER ] Routine. Electronic Heart Tones Internal [WOMSER] Per Unit Routine. Peripheral IV Insertion Adult [OM.PC] Routine. Resuscitation Status Routine. 06/01/17 08:29. Heart Tones [RC] ASDIRECTED. Peripheral IV Care [RC] . DIRECTED. 06/01/17 08:30. Lactated Ringers [Ringers, Lactated] 1,000 ml IV ASDIRECTED. 06/01/17 14:15. Oxytocin [Pitocin] 20 unit Lactated Ringers [ Ringers, Lactated] 1,000 ml IV ASDIRECTED. 06/01/17 14:30. Oxytocin/Lactated Ringers [Pitocin in LR 10 Units/1,000 ML] 10 unit in 1,000 ml IV TITRATE. 06/01 14:36. Calcium Carbonate [Tums] 500 mg PO Q2H PRN. 06/01/17 Breakfast. Regular Diet [DIET]. - Plan. Plan:: Patient seen, examined by me and discussed with student. - Discharge Data Discharge Date: 06/02/17 Discharge Disposition: Home, Self-Care 01 Condition: Good - Discharge Diagnosis/Problem(s) (1) 40 weeks gestation of SNOMED Code(s): 38677438 ICD Code: Z3A.40 - 40 WEEKS GESTATION OF Status: Acute Current Visit: Yes Problem Details: Nothing in the vagina for 6 weeks (2) First degree perineal laceration during delivery SNOMED Code(s): 506457647 ICD Code: O70.0 - FIRST DEGREE PERINEAL LACERATION DURING DELIVERY Status: Acute Current Visit: Yes (3) Placenta succenturiata in third trimester SNOMED Code(s): 69937376 ICD Code: O43.193 - OTHER MALFORMATION OF PLACENTA, THIRD TRIMESTER Status : Acute Current Visit: Yes - Patient Summary/Data Complications: None Consults: None Hospital Course: Uneventful - Patient Instructions Diet: Regular Diet as Tolerated Driving: Do Not Drive (48 hours) Showering/Bathing: May Shower, No Tub Bathing/Swimming (6 weeks) Notify Provider of: Fever, Increased Pain, Swelling and Redness, Drainage, Nausea and/or Vomiting - Discharge Plan Home Medications: Home Meds Vit W-Ca,Fe,FA(<1 mg) [ Vitamins] 1 tab PO DAILY 06/01/17 [ History] Acetaminophen [Tylenol] 650 mg PO Q6H PRN tablet 06/02/17 [Rx] Benzocaine/Menthol [Dermoplast Pain Relief [place]] 1 spray TOP ASDIRECTED PRN canister 06/02/17 [Rx] Docusate Sodium [Colace] 100 mg PO BID PRN cap 06/02/17 [Rx] Ibuprofen [IJD: Ibuprofen] 600 mg PO Q6H PRN tablet 06/02/17 [Rx] Lanolin [Lansinoh HPA] 1 applic TOP ASDIRECTED PRN tube 06/02/17 [Rx] Witch Gissel [Tucks] 1 pad TOP ASDIRECTED PRN pad 06/02/17 [Rx] Referrals: Chris Blair MD [Primary Care Provider] - (two weeks) - Discharge Summary/Plan Comment DC Time >30 min.: No - Patient Data Vitals - Most Recent: Last Vital Signs Temp 97.9 F 06/02/17 04:00 Pulse 71 06/02/17 04:00 Resp 16 06/02/17 04:00 BP 120/80 06/02/17 04:00 Pulse Ox 98 06/02/17 04:00 Weight - Most Recent: 182 lb I&O - Last 24 hours: Intake & Output 06/01/17 06/02/17 06/02/17 22:59 06:59 14:59 Intake Total 120 4700 Balance 120 4700 Lab Results - Last 24 hrs: Laboratory Results - last 24 hr 06/02/17 Range/Units 06:05 WBC 9.79 (3.98-10.04) K/mm3 RBC 3.71 L (3.98-5.22) M/mm3 Hgb 11.7 (11.2-15.7) gm/L Hct 34.2 (34.1-44.9) % MCV 92.2 (79.4-94.8) fl MCH 31.5 (25.6-32.2) pg MCHC 34.2 (32.2-35.5) g/dl RDW Std Deviation 46.1 (36.4-46.3) fL Plt Count 148 L (182-369) K/mm3 MPV 11.2 (9.4-12.3) fl Neut % (Auto) 80.1 H (34.0-71.1) % Lymph % (Auto) 12.5 L (19.3-51.7) % [place] % (Auto) 6.1 (4.7-12.5) % Eos % (Auto) 0.7 (0.7-5.8) Baso % (Auto) 0.2 (0.1-1.2) % Neut # (Auto) 7.84 H (1.56-6.13) K/mm3 Lymph # (Auto) 1.22 (1.18-3.74) K/mm3 [place] # (Auto) 0.60 H (0.24-0.36) K/mm3 Eos # (Auto) 0.07 (0.04-0.36) K/mm3 Baso # (Auto) 0.02 (0.01-0.08) K/mm3 Med Orders - Current: Current Medications Acetaminophen (Tylenol) 650 mg PO Q4H PRN PRN Reason: mild pain or fever Benzocaine/Menthol (Dermoplast Pain Relief [place]) 0 gm TOP ASDIRECTED PRN PRN Reason: Perineal Comfort Measure Last Admin: 06/01/17 21:57 Dose: 1 canister Docusate Sodium (Colace) 100 mg PO BID PRN PRN Reason: Constipation Emollient Ointment (Lansinoh Hpa) 0 gm TOP ASDIRECTED PRN PRN Reason: Sore Nipples Ibuprofen (Motrin) 600 mg PO Q4H PRN PRN Reason: Mild pain or fever Last Admin: 06/02/17 08:16 Dose: 600 mg Prenat Multivit/[place]/Iron/Folic Ac ( Plus Iron) 1 each PO DAILY MEET Last Admin: 06/02/17 08:16 Dose: 1 each Witch Gissel (Tucks) 1 pad TOP ASDIRECTED PRN PRN Reason: Hemorrhoid pain Last Admin: 06/01/17 21:57 Dose: 1 tub Discontinued Medications Bupivacaine HCl (Sensorcaine-Mpf 0.25%) 10 ml .ROUTE .STK-MED ONE Stop: 06/01/17 22:23 Calcium Carbonate/Glycine (Tums) 500 mg PO Q2H PRN PRN Reason: Indigestion Diphenhydramine HCl (Benadryl) 25 mg IVPUSH Q6H PRN PRN Reason: Pruritis Last Admin: 06/01/17 22:19 Dose: 25 mg Diphenhydramine HCl (Benadryl) 25 mg IVPUSH NOW STA Stop: 06/01/17 22:09 Last Admin: 06/01/17 23:12 Dose: Not Given Ephedrine Sulfate (Ephedrine Sulfate) 5 mg IVPUSH ASDIRECTED PRN PRN Reason: Hypotension Fentanyl (Sublimaze) 100 mcg EPIDUR Q3H PRN PRN Reason: Pain Last Admin: 06/01/17 17:38 Dose: 100 mcg Fentanyl (Sublimaze) Confirm Administered Dose 100 mcg .ROUTE .STK-MED ONE Stop: 06/01/17 17:11 Last Admin: 06/01/17 19:00 Dose: Not Given Fentanyl/Bupivacaine HCl (Fentanyl/Bupivacaine/Ns 2 Mcg-0.125% 100 Ml) 100 ml EPIDUR ASDIRECTED MEET Last Admin: 06/01/17 17:38 Dose: 100 ml Lactated Ringer's (Ringers, Lactated) 1,000 mls @ 100 mls/hr IV ASDIRECTED MEET Last Admin: 06/01/17 18:20 Dose: 100 mls/hr Oxytocin 20 unit/ Lactated (Ringer's) 1,002 mls @ 1,503 mls/hr IV ASDIRECTED MEET; 500 MUNITS/MIN PRN Reason: Protocol Last Admin: 06/01/17 23:34 Dose: 500 munits/min, 1,503 mls/hr Oxytocin/Lactated Ringer's (Pitocin In Lr 10 Units/1,000 Ml) 10 unit in 1,000 mls @ 12 mls/hr IV TITRATE MEET; 2 MUNITS/MIN PRN Reason: Protocol Last Titration: 06/01/17 17:50 Dose: 1 munits/min, 6 mls/hr Misoprostol (Cytotec) Confirm Administered Dose 25 mcg .ROUTE .STK-MED ONE Stop: 06/01/17 08:17 Last Admin: 06/01/17 08:20 Dose: 25 mcg Misoprostol (Cytotec) 25 mcg VAG Q3H MEET Stop: 06/01/17 14:17 Last Admin: 06/01/17 18:59 Dose: Not Given Nalbuphine HCl (Nubain) 10 mg IVPUSH Q2H PRN PRN Reason: Pain (moderate 4-6) Ondansetron HCl (Zofran) 4 mg IVPUSH Q4H PRN PRN Reason: Nausea/Vomiting Ondansetron HCl (Zofran) 4 mg IVPUSH ONETIME PRN PRN Reason: Nausea/Vomiting Sodium Chloride (Saline Flush) 10 ml FLUSH ASDIRECTED PRN PRN Reason: Keep Vein Open *Q Meaningful Use (DIS) - VTE *Q VTE Criteria *Q: - Stroke *Q Stroke Criteria *Q: - AMI *Q AMI Criteria *Q:
[2017-06-02 13:57] VITALS: BP 117/81
== END 2017-06-02 15:55 | disposition home or self-care (01) | DRG 775 ==
LOC: JD.OB 07:16 → OBSVTOIN 20:11
PROVIDERS: ADMIT Obstetrics & Gynecology; ATTEND Obstetrics & Gynecology
PROC: 10E0XZZ Delivery of Products of Conception, External Approach (ICD-10-PCS; principal; 2017-06-01)
PROC: 0HQ9XZZ Repair Perineum Skin, External Approach (ICD-10-PCS; 2017-06-01)
PROC: 3E0P3VZ Introduction of Hormone into Female Reproductive, Percutaneous Approach (ICD-10-PCS; 2017-06-01)
PROC: 10907ZC Drainage of Amniotic Fluid, Therapeutic from Products of Conception, Via Natural or Artificial Opening (ICD-10-PCS; 2017-06-01)
PROC: 00HU33Z Insertion of Infusion Device into Spinal Canal, Percutaneous Approach (ICD-10-PCS; 2017-06-01)
PROC: 3E0R3BZ Introduction of Anesthetic Agent into Spinal Canal, Percutaneous Approach (ICD-10-PCS; 2017-06-01)
DX: O70.0 First degree perineal laceration during delivery (principal); Z3A.40 40 weeks gestation of pregnancy; Z37.0 Single live birth; Z88.0 Allergy status to penicillin; O43.193 Other malformation of placenta, third trimester
CPT/HCPCS: 36415; 51702; 59409; 85025; 86850; 86900; 86901; A9270-GY; J1200; J2590; J3010; J7120

== ENCOUNTER 2017-10-03 08:35 | Day surgery (SDC) | payer OTHER ==
--- NOTE | 2017-10-03 08:02 | PCM.PREANE ---
Preanesthetic Assessment - Anesthesia/Transfusion/Family Hx Anesthesia History: Prior Anesthesia Without Reaction Type of Anesthesia Reaction: Excessive Nausea/Vomiting Family History of Anesthesia Reaction: No Transfusion History: No Prior Transfusion(s) Intubation History: Unknown - Review of Systems General: No Symptoms Pulmonary: No Symptoms Cardiovascular: No Symptoms, Palpitations Gastrointestinal: No Symptoms Neurological: No Symptoms (motion sickness) Other: Reports: Easy Bruising - Physical Assessment NPO Status Date: 10/02/17 NPO Status Time: 18:00 Pulse: 78 O2 Sat by Pulse Oximetry: 99 Respiratory Rate: 16 Blood Pressure: 105/78 Temperature: 37.1 C Height: 1.68 m Weight: 70 kg ASA Class: 1 Mental Status: Alert & Oriented x3 Airway Class: Mallampati = 2 Dentition: Reports: Normal Dentition, Caries Thyro-Mental Finger Breadths: 3 Mouth Opening Finger Breadths: 3 ROM/Head Extension: Full Lungs: Clear to Auscultation, Normal Respiratory Effort Cardiovascular: Regular Rate, Regular Rhythm, No Murmurs - Lab Values: Laboratory Last Values WBC 5.24 K/mm3 (3.98-10.04) 09/25/17 10:07 RBC 5.14 M/mm3 (3.98-5.22) 09/25/17 10:07 Hgb 15.3 gm/L (11.2-15.7) 09/25/17 10:07 Hct 45.0 % (34.1-44.9) H 09/25/17 10:07 MCV 87.5 fl (79.4-94.8) 09/25/17 10:07 MCH 29.8 pg (25.6-32.2) 09/25/17 10:07 MCHC 34.0 g/dl (32.2-35.5) 09/25/17 10:07 RDW Std Deviation 42.1 fL (36.4-46.3) 09/25/17 10:07 Plt Count 295 K/mm3 (182-369) 09/25/17 10:07 MPV 10.6 fl (9.4-12.3) 09/25/17 10:07 Neut % (Auto) 61.8 % (34.0-71.1) 09/25/17 10:07 Lymph % (Auto) 26.5 % (19.3-51.7) 09/25/17 10:07 [place] % (Auto) 8.8 % (4.7-12.5) 09/25/17 10:07 Eos % (Auto) 2.1 (0.7-5.8) 09/25/17 10:07 Baso % (Auto) 0.8 % (0.1-1.2) 09/25/17 10:07 Neut # (Auto) 3.24 K/mm3 (1.56-6.13) 09/25/17 10:07 Lymph # (Auto) 1.39 K/mm3 (1.18-3.74) 09/25/17 10:07 [place] # (Auto) 0.46 K/mm3 (0.24-0.36) H 09/25/17 10:07 Eos # (Auto) 0.11 K/mm3 (0.04-0.36) 09/25/17 10:07 Baso # (Auto) 0.04 K/mm3 (0.01-0.08) 09/25/17 10:07 HCG, Quant < 1.0 mIU/mL 09/25/17 10:07 Blood Type B POSITIVE 09/25/17 10:07 Gel Antibody Screen Negative 09/25/17 10:07 Above labs reviewed and noted and within acceptable ranges to proceed with scheduled procedure. HCG negative - Imaging/EKG Impressions: EKG: SR rate = 71, Q waves III, avL, decreased voltage in limb leads, QT mildly prolonged, LAD, T wave flattening in avF. - Allergies Allergies/Adverse Reactions: Allergies Allergy/AdvReac Type Severity Reaction Status Date / Time Penicillins Allergy Rash Verified 10/02/17 11:12 - Anesthesia Plan Pre-Op Medication Ordered: None - Acknowledgements Anesthesia Type Planned: General Anesthesia Pt an Appropriate Candidate for the Planned Anesthesia: Yes Alternatives and Risks of Anesthesia Discussed w Pt/Guardian: Yes Pt/Guardian Understands and Agrees with Anesthesia Plan: Yes PreAnesthesia Questionnaire - Past Health History Medical/Surgical History: Denies Medical/Surgical History HEENT History: Reports: None Cardiovascular History: Reports: Other (See Below) Other Cardiovascular History: palpitations Respiratory History: Reports: None Gastrointestinal History: Reports: None Genitourinary History: Reports: None STEM SETTER History: Reports: , Other (See Below) Other OB/BYN History: , CINI, CINII, ASCUS Musculoskeletal History: Reports: None Neurological History: Reports: None Psychiatric History: Reports: None Endocrine/Metabolic History: Reports: None Hematologic History: Reports: None Immunologic History: Reports: None Oncologic (Cancer) History: Reports: None Dermatologic History: Reports: None - Past Surgical History Head Surgeries/Procedures: Reports: None HEENT Surgical History: Reports: Oral Surgery Respiratory Surgical History: Reports: None GI Surgical History: Reports: None Female Surgical History: Reports: None Other Female Surgeries/Procedures: colposcopy Male Surgical History: Reports: None Endocrine Surgical History: Reports: None Neurological Surgical History: Reports: None Musculoskeletal Surgical History: Reports: None Oncologic Surgical History: Reports: None Dermatological Surgical History: Reports: None - SUBSTANCE USE Smoking Status *Q: Never Smoker Days Per Week of Alcohol Use: 0 Recreational Drug Use History: No - HOME MEDS Home Medications: Home Meds Vit W-Ca,Fe,FA(<1 mg) [ Vitamins] 1 tab PO DAILY 06/01/17 [ History] Lactobacillus Combination No.4 [Probiotic] 1 cap PO DAILY 10/02/17 [History] - CURRENT (IN HOUSE) MEDS Current Meds: Current Medications Lactated Ringer's (Ringers, Lactated) 1,000 mls @ 125 mls/hr IV ASDIRECTED MEET Lidocaine/Sodium Bicarbonate (Buffered Lidocaine 1% In Ns 8.4%) 0.25 ml IV ONETIME PRN PRN Reason: Prior to IV Start Sodium Chloride (Saline Flush) 10 ml FLUSH ASDIRECTED PRN PRN Reason: Keep Vein Open Discontinued Medications Cefazolin Sodium (Ancef) Confirm Administered Dose 2 gm .ROUTE .STK-MED ONE Stop: 10/03/17 06:26 Dexamethasone (Dexamethasone) Confirm Administered Dose 12 mg .ROUTE .STK-MED ONE Stop: 10/03/17 06:26 Fentanyl (Sublimaze) Confirm Administered Dose 250 mcg .ROUTE .STK-MED ONE Stop: 10/03/17 06:27 Hydromorphone HCl (Dilaudid) Confirm Administered Dose 1 mg .ROUTE .STK-MED ONE Stop: 10/03/17 06:27 Lactated Ringer's (Ringers, Lactated) 1,000 mls @ 125 mls/hr IV ASDIRECTED MEET Lidocaine HCl (Xylocaine-Mpf 1%) Confirm Administered Dose 4 mls @ as directed .ROUTE .STK-MED ONE Stop: 10/03/17 06:26 Lactated Ringer's (Ringers, Lactated) Confirm Administered Dose 1,000 mls @ as directed .ROUTE .STK-MED ONE Stop: 10/03/17 06:26 Ketorolac Tromethamine (Toradol) Confirm Administered Dose 30 mg .ROUTE .STK- MED ONE Stop: 10/03/17 06:26 Lidocaine/Sodium Bicarbonate (Buffered Lidocaine 1% In Ns 8.4%) 0.25 ml IV ONETIME PRN PRN Reason: Prior to IV Start Midazolam HCl (Versed 1 Mg/Ml) Confirm Administered Dose 2 mg .ROUTE .STK-MED ONE Stop: 10/03/17 06:27 Ondansetron HCl (Zofran) Confirm Administered Dose 4 mg .ROUTE .STK-MED ONE Stop: 10/03/17 06:26 Propofol (Diprivan 20 Ml) Confirm Administered Dose 200 mg .ROUTE .STK-MED ONE Stop: 10/03/17 06:27 Rocuronium [place] (Zemuron) Confirm Administered Dose 50 mg .ROUTE .STK-MED ONE Stop: 10/03/17 06:26 Sodium Chloride (Saline Flush) 10 ml FLUSH ASDIRECTED PRN PRN Reason: Keep Vein Open
[~2017-10-03 08:35] MED LIST: Dexamethasone 4 MG/ML SDV ONE; HYDROmorphone 1 MG/ML Syringe ONE; Ketorolac 30 MG/ML SDV ONE; Lactated Ringers 1,000 ML IV SCH; Lactated Ringers 1,000 ML ONE; Lidocaine 1% 4 ML ONE; Lidocaine 1%/Sod Bicarbonate in NS 8.4% 1 ML Syringe IV PRN; Midazolam 1 MG/ML 2 ML SDV ONE; Ondansetron 4 MG/2 ML SDV ONE; Propofol 200 MG/20 ML SDV ONE; Rocuronium 50 MG/5 ML Vial ONE; Sodium Chloride 0.9% 10 ML Syringe FLUSH PRN; ceFAZolin 1 GM Vial ONE; fentaNYL 250 MCG/5 ML SDV ONE
[2017-10-03] MEDS ORDERED: Lidocaine 1% with EPINEPHrine 1:100,000 20 ML MDV ONE (09:04)
[2017-10-03] MEDS ORDERED: Sodium Chloride 0.9% 50 ML SDV ONE (09:04)
[2017-10-03] MEDS: Lactated Ringers 1,000 ML IV SCH ×2 (09:05→13:10)
[2017-10-03] MEDS ORDERED: Scopolamine 1 MG Transdermal Patch TRDERM ONE (09:09)
[2017-10-03] MEDS ORDERED: diphenhydrAMINE 50 MG/ML SDV IVPUSH PRN (10:06)
[2017-10-03] MEDS ORDERED: fentaNYL 100 MCG/2 ML SDV IVPUSH PRN (10:06)
[2017-10-03] MEDS ORDERED: Ondansetron 4 MG/2 ML SDV IVPUSH PRN (10:06)
[2017-10-03] MEDS ORDERED: Phenylephrine 1 MG in Sodium Chloride 0.9% 10 ML IV SCH (10:15)
[2017-10-03] MEDS ORDERED: Neostigmine Methylsulfate 1 MG/ML 5 ML Syringe ONE (10:40)
--- NOTE | 2017-10-03 10:52 | PCM.OPNOTE ---
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 positive Post-Op Diagnosis: Same Anesthesia Technique: General ET Tube Primary Surgeon: Chris Blair Secondary Surgeon: Driss Barfield Anesthesia Provider: Marcia Sanchez Reason Netbackup Administrator Was Necessary: Decrease comorbidity and comortality, assistance surgery, retraction, patient safety Role of Netbackup Administrator: Decrease comorbidity and comortality, assistance surgery, retraction, patient safety Fluid Replacement, Intraop: 1,000 Output, Urine Amount: 0 (voided preop) EBL in mLs: 100 Drain/Tube Comments:: None Complications: None Condition: Good Free Text/Narrative:: Patient was transported to operating room #3 and placed under general anesthesia with endotracheal intubation in low dorsolithotomy position. SCDs in place and functioning prior surgery. Ancef 2 g given intravenously with negative test dose (history of allergy to penicillin no untoward effects from the Ancef) timeout performed confirming name, date of , and procedure. Examination under anesthesia had revealed anterior uterus no adnexal masses. Having been prepared and draped in a sterile fashion 20 mL of 0.25% lidocaine with epinephrine injected in multiple confluent areas around the cervix. The cervix was massaged with opened up 4 x 4 and then circumscribed sharply. Posterior colpotomy performed without difficulty. Utilizing the LigaSure crossclamping activating and incising the uterosacral cardinal ligaments were crossclamped on the left side and then on the right side. Proceeding cephalad in a pedicle fashion crossclamping the uterine vasculature was isolated crossclamped activated with LigaSure and incised. Anterior colpotomy was then performed without difficulty. The triple pedicles were then crossclamped with Jagruti clamp and incised. The uterus and cervix removed without difficulty. The left tube was then isolated crossclamped with LigaSure and removed. Same procedure carried out on the right side. Both ovaries were normal. Neither ovary was removed. Utilizing #1 Vicryl Jagruti fixation suture at each triple pedicle was placed and Jagruti clamp removed. These were tagged for identification and evaluation after completion of posterior cuff closure with running locking suture of 0 Monocryl. Examination of the left and right adnexa showed ovaries normal good blood flow no blanching no cyanosis no bleeding the tags were cut sponge needle pack asthma sharp count correct 2 and the anterior cuff was approximated to the posterior cuff utilizing 0 Monocryl running locking suture hemostasis was obtained without difficulty. Patient transported postanesthesia care unit in satisfactory condition. No blood transfusions were required. I talked with her at 1042 hrs. all questions answered to his voiced satisfaction. Percocet 5/325 dispense 20 [id number] by mouth every 6-8 hours when necessary pain patient has prominent to return to clinic in 2 weeks Monday10/17/17.
--- NOTE | 2017-10-03 10:58 | PCM.POSTAN ---
POST ANESTHESIA ASSESSMENT - MENTAL STATUS Mental Status: Alert - VITAL SIGNS Pulse Rate: 52 SaO2: 100 Resp Rate: 10 Blood Pressure: 113/72 Temperature: 36.5 C - RESPIRATORY Respiratory Status: Respiratory Rate WNL, Airway Patent, O2 Saturation Stable, Supplemental Oxygen - CARDIOVASCULAR CV Status: Pulse Rate WNL, Blood Pressure Stable - GASTROINTESTINAL GI Status: No Symptoms - POST OP HYDRATION Hydration Status: Adequate & Stable
--- NOTE | 2017-10-03 12:57 | PCM48HPAN ---
Post Anesthesia Note - EVALUATION WITHIN 48HRS OF ANESTHETIC Vital Signs in Normal Range: Yes Patient Participated in Evaluation: Yes Respiratory Function Stable: Yes Airway Patent: Yes Cardiovascular Function Stable: Yes Hydration Status Stable: Yes Pain Control Satisfactory: Yes Nausea and Vomiting Control Satisfactory: Yes Mental Status Recovered: Yes Pulse Rate: 52 SaO2: 96 (room air) Resp Rate: 10 Temperature: 36.5 C Blood Pressure: 113/72
[2017-10-03] MEDS ORDERED: Acetaminophen/oxyCODONE 325-5 MG Tab PO ONE (13:36)
[2017-10-03 14:09] VITALS: BP 111/68
== END 2017-10-03 14:00 | disposition home or self-care (01) ==
LOC: JD.SDS 08:35
PROVIDERS: ATTEND Obstetrics & Gynecology
DX: N87.0 Mild cervical dysplasia (principal); N83.8 Other noninflammatory disorders of ovary, fallopian tube and broad ligament; Z88.0 Allergy status to penicillin; Z98.890 Other specified postprocedural states; Z79.899 Other long term (current) drug therapy
CPT/HCPCS: 36415; 58262; 81025; 84702; 85025; 86850; 86900; 86901; A9270; J0690; J1100; J1170; J1200; J1885; J2250; J2405; J2710; J3010; J7120; 00944; J2001; J2704